=== PATIENT | female | born 1980 | race African-American/Black ===

== ENCOUNTER 2016-10-04 16:04 | Emergency (ER) | payer OTHER ==
[~2016-10-04] VITALS: Ht 162.6 cm; Wt 58.1 kg
[~2016-10-04 16:04] MED LIST: ALBUTEROL0.09 MG/A1 INH; FERROUS SULFAT325 M1 PO; IBU600 MG PO; LEVAQUIN500 MG PO; PREDNISONE50 MG PO
--- NOTE | 2016-10-04 17:35 | ED INFLUENZA/URI COMPLAINT ---
History of Present Illness General Chief Complaint: General Adult Stated Complaint: FACE, EARS, THROAT PAIN Source: patient, old records Exam Limitations: no limitations Vital Signs & Intake/Output Vital Signs & Intake/Output Vital Signs Date Time Temp Pulse Resp B/P B/P Pulse O2 O2 Flow FiO2 Mean Ox Delivery Rate 10/04 1805 95 Room Air 10/04 1753 78 20 120/62 95 Room Air 10/04 1629 98.4 80 15 122/64 95 Room Air Room Air Allergies Coded Allergies: No Known Allergies (10/04/16) Reconcile Medications Albuterol Sulfate (Albuterol Sulfate Hfa) 0.09 MG/Actuation MIRANDA 2 PUFF INH Q4- 6 PRN PRN SHORTNESS OF BREATH 90 MCG PER PUFF Amoxicillin/Potassium Clav (Augmentin 875-125 Tablet) 875 MG-125 MG TABLET 1 TAB PO BID sinusitis Ferrous Sulfate 325 MG TAB 1 TAB PO BID ANEMIA (Reported) Ibuprofen (Ibu) 600 MG TAB 1 TAB PO 4 TIMES/DAY PRN PAIN Ibuprofen 600 MG TABLET 1 TAB PO TID PRN pain with food Levofloxacin (Levaquin) 500 MG TAB 1 TAB PO QDAY PNEUMONIA Mometasone Furoate (Nasonex) 50 MCG SPRAY.PUMP 2 SPRAY NASB DAILY sinusitis Prednisone 50 MG TAB 1 TAB PO QDAY PRN ASTHMA Triage Note: PT TO ED FOR HEADACHE, SINUS PRESSURE AND CONGESTION, NON-PRODUCTIVE COUGH. EAR PAIN. SCRATCHY THROAT. ABFEBRILE IN TRIAGE. Triage Nurses Notes Reviewed? yes Onset: Gradual Duration: day(s): (3), constant Timing: recent history Severity: mild, moderate Severity Numbers: 5 Prior Episodes/Possible Cause: occassional episodes No Modifying Factors: none Associated Symptoms: muscle aches, nasal congestion, nasal drainage, sore throat : No Patient currently breastfeeds: No HPI: 36-year-old female no medical history presents to ER for evaluation complaining of a sore throat and rhinorrhea congestion sinus pressure headaches for the past 3 days. No sick contacts no recent travel. She's been taking ibuprofen without improvement. History of seasonal allergies she works at a [employer]. No cough abdominal pain nausea vomiting or diarrhea. No modifying factors or associated symptoms otherwise. (BRANDIN BIRD,PANCHITO) Past History Travel History Traveled to [place] past 21 day No Medical History Any Pertinent Medical History? 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 No (PANCHITO HARRELL) Review of Systems Review of Systems Constitutional: Reports: see HPI. All Other Systems: Reviewed and Negative Comments Review of systems: See HPI, All other systems negative. Constitutional, no chills no fever, no malaise HEENT: No visual changes sore throat congestion Cardiovascular: No chest pain , no palpitation Skin: no rashes, no change in skin Respiratory: No dyspnea no cough no sputum GI: No nausea no vomiting, no diarrhea, : No dysuria No hematuria, Muscle skeletal: No joint pain, no joint swelling, no back pain, no neck pain, Neurologic: headache Psych: No stress Heme/endocrine: No bruising no bleeding Immunology: No lymphadenopathy (PANCHITO HARRELL) Physical Exam Physical Exam General Appearance: well developed/nourished, no apparent distress, alert, awake Ears, Nose, Throat: moist mucous membrane, Tympanic normal, nasal congestion, nasal drainage Comments: Well-developed well-nourished patient in no apparent distress. Head/Face: Atraumatic, maxillary/frontal sinus tenderness, no facial swelling Eyes: PERRL, EOMI, no conjunctival injection. No nystagmus Ear:External auditory canal and Tympanic membranes clear, no erythema, no FB. Nose: atraumatic.rhinorrhea and nasal congestion Throat: Moist mucous membranes.Pharynx normal. No pharyngeal erythema/exudate seen. No stridor/drooling or assymetry. No swelling or edema. Neck: Supple, no lymphadenopathy, FROM Back: FROM Cardiovascular: Regular rate and rhythms no murmurs Respiratory: No respiratory distress. Patient speaking in full complete sentences. Breath sounds clear to auscultation bilaterally: NO W/R/R Extremities: full range of motion Neuro: awake, alert, and oriented to person, place and time. There were no obvious focal neurologic abnormalities. Skin: Warm & dry;No appreciable rash on exposed skin Psych: Mood affect normal, normal memory normal judgment. Core Measures Severe Sepsis Present: No Septic Shock Present: No (PANCHITO HARRELL) Progress Differential Diagnosis: influenza, pneumonia, pharyngitis, sinusitis Plan of Care: Orders Procedure Date/time Status THROAT CULTURE W/QUICK STREP 10/04 1631 Active I discussed with the patient at length all of their results. I had an extensive conversation regarding need for close follow up with their primary care physician this week as well as return precautions. I answered all of their questions, they feel comfortable with the plan and follow-up care. I discussed with the patient/family the medications that they will receive. I gave them signs and symptoms that could indicate an adverse reaction. I have advised them to limit their activities until they can see how they respond to the medication. (PANCHITO HARRELL) Initial ED EKG: none (PANCHITO HARRELL) Departure Departure Time of Disposition: 1748 Disposition: HOME OR SELF CARE Condition: Stable Clinical Impression Primary Impression: Sinusitis Referrals: TESHA PALUMBO MD (PCP/Family) Additional Instructions: Augmentin, Nasonex as discussed Tylenol Motrin every 4-6 hours. Follow-up with her primary care physician this week and plenty of fluids return with any concerns. these were sent to [facility] Departure Forms: Customer Survey General Discharge Information Prescriptions: Current Visit Scripts Amoxicillin/Potassium Clav (Augmentin 875-125 Tablet) 1 TAB PO BID #14 TAB Mometasone Furoate (Nasonex) 2 SPRAY NASB DAILY #1 INHAL Ibuprofen 1 TAB PO TID PRN pain #30 TAB with food (PANCHITO HARRELL) PA/CASH POSTING SPECIALIST Co-Sign Statement Statement: ED Attending supervision documentation- [] I saw and evaluated the patient. I have also reviewed all the pertinent lab results and diagnostic results. I agree with the findings and the plan of care as documented in the PA's/CASH POSTING SPECIALIST's documentation. [X] I have reviewed the ED Record and agree with the PA's/CASH POSTING SPECIALIST's documentation. [] Additions or exceptions (if any) to the PAs/CASH POSTING SPECIALIST's note and plan are summarized below: [] (CATE BOYLE,DEVAN Dunbar)
[2016-10-04] MEDS ORDERED: AUGMENTIN 875-1 EACH PO (17:50)
[2016-10-04] MEDS ORDERED: IBUPROFEN600 M1 PO (17:50)
[2016-10-04] MEDS ORDERED: NASONEX17 GM NASB (17:50)
[2016-10-04 17:53] VITALS: BP 120/62
== END 2016-10-04 18:08 ==
LOC: ERH 16:04
DX: J32.9 Chronic sinusitis, unspecified (principal)